=== PATIENT | female | born 2000 | race Caucasian/White ===

== ENCOUNTER 2023-10-23 22:03 | Emergency (ER) | payer OTHER ==
[~2023-10-23] VITALS: Ht 154.9 cm; Wt 44.5 kg
[2023-10-23 22:28] VITALS: BP 141/80; PULSE 65; RESP 13; TEMP 98.3
[2023-10-23] MEDS ORDERED: LIDOCAINE 1% 10 ML VIAL SQ ONE (23:30)
[2023-10-23] MEDS ORDERED: PERTUSS(ACELL),DIPH,TET VAC/PF 0.5 ML SYRINGE IM. ONE (23:30)
== END 2023-10-24 00:38 | disposition home or self-care (01) ==
LOC: EMS 22:06
DX: S61.012A Laceration without foreign body of left thumb without damage to nail, initial encounter (principal); Z90.49 Acquired absence of other specified parts of digestive tract; W26.0XXA Contact with knife, initial encounter; Y93.89 Activity, other specified; Y92.89 Other specified places as the place of occurrence of the external cause; Y99.0 Civilian activity done for income or pay
CPT/HCPCS: 99283; 90715; 90471; 12001; J3490

== ENCOUNTER 2023-10-31 11:08 | Emergency (ER) | payer OTHER ==
[~2023-10-31] VITALS: Ht 154.9 cm; Wt 45.5 kg
[2023-10-31 11:14] VITALS: TEMP 98
[2023-10-31] MEDS ORDERED: BACITRACIN 0.9 GM PACKET OINTMENT TP ONE (12:45)
[2023-10-31 13:26] VITALS: BP 116/70; PULSE 80; RESP 16
== END 2023-10-31 13:27 | disposition home or self-care (01) ==
LOC: EMS 11:14
DX: S61.412D Laceration without foreign body of left hand, subsequent encounter (principal); Z48.02 Encounter for removal of sutures; Z90.49 Acquired absence of other specified parts of digestive tract; X58.XXXD Exposure to other specified factors, subsequent encounter
CPT/HCPCS: 99282; Z7502; Z7610